=== PATIENT | female | born 1980 | race Caucasian/White ===

== ENCOUNTER 2016-09-25 04:19 | Emergency (ER) | payer SELFPAY ==
[~2016-09-25 04:19] MED LIST: AMOX875T PO; BUTA1CAP29 PO; HYDR-2758 PO
--- NOTE | 2016-09-25 04:40 | ED.ADGEN ---
Past History Past Medical History: Other Past Surgical History: Smoking: Non-smoker Alcohol Use: Occasionally Drug Use: None Adult General HPI HPI Patient is a 36-year-old woman, who presents to the emergency department with a complaint of right sided flank pain and right abdominal pain that woke her from sleep around 3:00 this morning. Patient states pain is been mostly constant since about 3 AM, states she took acetaminophen about 45 minutes prior to arrival in the emergency department without relief. Is experiencing nausea and vomiting as well, denies any dysuria, any frequency or urgency, any hematuria. Patient denies any similar symptoms previously. She states that she was evaluated for gallbladder issues about a month ago, but states this pain is different. Denies any recent injuries, any travel, any sick contacts or exposures, no fevers, complaining of chills this morning, no weakness, numbness , tingling, chest pain, shortness of breath, rashes, swelling extremities, discharge or drainage from the vagina or concerns for STI exposure. Review of Systems Review of Systems Constitutional: Denies fever or chills [] Eyes: Denies change in visual acuity, redness, or eye pain [] HENT: Denies nasal congestion or sore throat [] Respiratory: Denies cough or shortness of breath [] Cardiovascular: No additional information not addressed in HPI [] GI: Right flank pain, right sided abdominal pain, associated with nausea, no diarrhea. No bloody stools or bloody emesis. : Denies dysuria or hematuria [] Musculoskeletal: Denies back pain or joint pain [] Integument: Denies rash or skin lesions [] Neurologic: Denies headache, focal weakness or sensory changes [] Endocrine: Denies polyuria or polydipsia [] Current Medications Current Medications Current Medications Medications (Trade) Dose Ordered Sig/Isaura Start Time Stop Time Status Last Admin Dose Admin Cephalexin HCl (Keflex) 500 mg 1X ONCE 09/25/16 06:00 09/25/16 06:01 UNV 09/25/16 06:00 500 MG Fentanyl Citrate (Fentanyl 2ml Vial) 25 mcg PRN Q15MIN PRN 09/25/16 04:45 09/26/16 04:44 09/25/16 05:02 25 MCG Ketorolac Tromethamine (Toradol) 10 mg 1X ONCE 09/25/16 04:45 09/25/16 05:54 DC 09/25/16 04:45 10 MG Ondansetron HCl (Zofran) 4 mg 1X ONCE 09/25/16 04:45 09/25/16 05:54 DC 09/25/16 04:45 4 MG Phenazopyridine HCl (Pyridium) 200 mg 1X ONCE 09/25/16 06:15 09/25/16 06:16 UNV Sodium Chloride 1,000 ml @ 1,000 mls/hr Q1H 09/25/16 04:45 09/25/16 05:45 DC 09/25/16 04:45 1,000 MLS/HR Allergies Allergies Allergies Coded Allergies Type Severity Reaction Last Updated Verified warfarin sodium Allergy Intermediate 07/16/13 Yes Physical Exam Physical Exam Constitutional: Well developed, obese, appears uncomfortable, non-toxic appearance. [] HENT: Normocephalic, atraumatic, bilateral external ears normal, oropharynx moist, no oral exudates, nose normal. [] Eyes: PERRLA, EOMI, conjunctiva normal, no discharge. [] Neck: Normal range of motion, no tenderness, supple, no stridor. [] Cardiovascular:Heart rate regular rhythm, no murmur , S1, S2, no rubs or gallops. [] Lungs & Thorax: Bilateral breath sounds clear to auscultation, no wheezing, rhonchi, rales. No chest tenderness or crepitus. [] Abdomen: Bowel sounds normal, soft, tenderness to palpation along the right middle and lower quadrant, negative Osman sign, no rebound, rigidity, no guarding, no masses, no pulsatile masses. [] Skin: Warm, dry, no erythema, no rash. [] Back: No no midline or paraspinal tenderness, mild right-sided CVA tenderness. [ ] Extremities: No tenderness, no cyanosis, no clubbing, ROM intact, no edema. [] Neurologic: Alert and oriented X 3, normal motor function, normal sensory function, no focal deficits noted. [] Psychologic: Affect normal, judgement normal, mood normal. [] Current Patient Data Vital Signs Vital Signs Date Time Temp Pulse Resp B/P (MAP) Pulse Ox O2 Delivery O2 Flow Rate FiO2 09/25/16 05:32 20 98 Room Air 09/25/16 04:20 98.3 94 Lab Results Laboratory Tests Test 09/25/16 04:25 09/25/16 04:30 09/25/16 04:35 Urine Collection Type Unknown Urine Color Yellow Urine Clarity Clear Urine pH 5.5 Urine Specific [place] 1.020 Urine Protein Neg (NEG-TRACE) Urine Glucose (UA) Neg mg/dL (NEG) Urine Ketones (Stick) Neg mg/dL (NEG) Urine Blood Neg (NEG) Urine Nitrite Neg (NEG) Urine Bilirubin Neg (NEG) Urine Urobilinogen Dipstick 0.2 mg/dL (0.2 mg/dL) Urine Leukocyte Esterase Trace (NEG) Urine RBC 0 /HPF (0-2) Urine WBC 5-10 /HPF (0-4) Urine Squamous Epithelial Cells Few /LPF Urine Bacteria Few /HPF (0-FEW) Urine Sperm Present /HPF White Blood Count 8.1 x10^3/uL (4.0-11.0) Red Blood Count 4.59 x10^6/uL (3.50-5.40) Hemoglobin 13.8 g/dL (12.0-15.5) Hematocrit 39.6 % (36.0-47.0) Mean Corpuscular Volume 86 fL (79-100) Mean Corpuscular Hemoglobin 30 pg (25-35) Mean Corpuscular Hemoglobin Concent 35 g/dL (31-37) Red Cell Distribution Width 13.3 % (11.5-14.5) Platelet Count 269 x10^3/uL (140-400) Neutrophils (%) (Auto) 63 % (31-73) Lymphocytes (%) (Auto) 28 % (24-48) Monocytes (%) (Auto) 7 % (0-9) Eosinophils (%) (Auto) 2 % (0-3) Basophils (%) (Auto) 1 % (0-3) Neutrophils # (Auto) 5.1 x10^3uL (1.8-7.7) Lymphocytes # (Auto) 2.2 x10^3/uL (1.0-4.8) Monocytes # (Auto) 0.5 x10^3/uL (0.0-1.1) Eosinophils # (Auto) 0.2 x10^3/uL (0.0-0.7) Basophils # (Auto) 0.0 x10^3/uL (0.0-0.2) Sodium Level 142 mmol/L (136-145) Potassium Level 3.7 mmol/L (3.5-5.1) Chloride Level 108 mmol/L (98-107) H Carbon Dioxide Level 25 mmol/L (21-32) Anion Gap 9 (6-14) Blood Urea Nitrogen 14 mg/dL (7-20) Creatinine 0.9 mg/dL (0.6-1.0) Estimated GFR (Cockcroft-Gault) 71.3 BUN/Creatinine Ratio 16 (6-20) Glucose Level 115 mg/dL (70-99) H Calcium Level 8.4 mg/dL (8.5-10.1) L Total Bilirubin 0.4 mg/dL (0.2-1.0) Aspartate Amino Transferase (AST) 13 U/L (15-37) L Alanine Aminotransferase (ALT) 20 U/L (14-59) Alkaline Phosphatase 88 U/L (46-116) Total Protein 6.8 g/dL (6.4-8.2) Albumin 3.4 g/dL (3.4-5.0) Albumin/Globulin Ratio 1.0 (1.0-1.7) Lipase 147 U/L (73-393) POC Urine HCG, Qualitative hcg negative (Negative) EKG EKG Not indicated. [] Radiology/Procedures Radiology/Procedures [][place] [id number] IMAGING REPORT Signed PATIENT: BROCK FERRARI ACCOUNT: [id number] : 1980 LOCATION: ER AGE: 36 SEX: F EXAM STATUS: PRE ER ORD. PHYSICIAN: ARASH FULLER DO REASON: R flank/RLQ pain PROCEDURE: CT ABDOMEN PELVIS WO CONTRAST EXAM: CT ABDOMEN/PELVIS WITHOUT CONTRAST. HISTORY: Right flank and right lower quadrant pain. TECHNIQUE: Computed tomography of the abdomen and pelvis was performed without intravenous contrast. COMPARISON: None. FINDINGS: Lung windows through the visualized portions of the bases reveal mild atelectasis. Bone windows reveal no suspicious lesions. A small cyst in the right kidney measures 9 mm. There are no renal or ureteral calculi. There is no hydronephrosis. There is diffuse bladder wall thickening. There are small gallstones in the gallbladder. There is no pericholecystic inflammation. The liver, spleen, pancreas and adrenal glands are unremarkable without contrast. There are no pathologically enlarged lymph nodes. The appendix is not inflamed. Stool throughout the colon is consistent with constipation. IMPRESSION: 1. Diffuse bladder wall thickening indicates chronic outlet obstruction or inflammation. Correlate with urinalysis. 2. Cholelithiasis. 3. Correlate for constipation as a cause of symptoms. *One or more of the following individualized dose reduction techniques were utilized for this examination: 1. Automated exposure control. 2. Adjustment of the mA and/or kV according to patient size. 3. Use of iterative reconstruction technique. Electronically signed by: Lola Carrillo MD (09/25/2016 5:38 AM) DICTATED AND SIGNED BY: RODRIGUEZ CARRILLO MD DATE: 09/25/16 0509 CC: ARASH FULLER DO; PCP,NO ~ Course & Med Decision Making Course & Med Decision Making Pertinent Labs and Imaging studies reviewed. (See chart for details) After discussion, CT of abdomen and pelvis obtained further elucidate patient's symptoms, concern for possible renal calculi. Laboratory studies and scan obtained as stated, patient received Toradol, IV fluids, Zofran. On reevaluation patient is feeling much better, CT does not reveal evidence of any renal calculi, some evidence of thickening of the bladder, patient states she has a history of multiple recurrent UTIs, and also of constipation, with cholelithiasis without evidence of cholecystitis. Laboratory studies are unremarkable, and patient noted to have some wbc's and bacteria in the urine although it is nitrate negative. Patient the patient's examination and complaints, we'll treat for potential urinary tract infection is contributing to her symptoms, although show evidence of pyelonephritis or other concerning findings as stated. Patient received first dose of Keflex in the emergency department, discharged with prescription for Keflex Pyridium and naproxen, I did discuss importance of follow-up with a primary care provider for additional evaluation, dietary recommendations and hydration recommendations, along with use of naproxen and Pyridium for discomfort. Patient voiced understanding and agreement with these instructions and precautions, states she'll be able to follow-up with a provider through her place of employment, and also requested information regarding additional evaluation of her gallbladder, for this she was given contact information for Dr. Baker of general surgery. We also discussed concerning symptoms that prompt return to the emergency department, with which patient voiced understanding and agreement. Patient discharged home in stable condition with instructions and plan as above. Final Impression Final Impression [] Problems: Dragon Disclaimer Dragon Disclaimer This electronic medical record was generated, in whole or in part, using a voice recognition dictation system. Departure: Impression: Primary Impression: Abdominal pain Additional Impression: Urinary tract infection Disposition: HOME, SELF-CARE Condition: IMPROVED Scripts Phenazopyridine Hcl (PYRIDIUM) 200 Mg Tablet 200 MG PO PRN TID Y for PAIN, #9 TAB Prov: ARASH FULLER DO 09/25/16 Naproxen (NAPROXEN) 250 Mg Tablet 250 MG PO PRN BID Y for PAIN, #10 TAB Prov: ARASH FULLER DO 09/25/16 Cephalexin (KEFLEX) 500 Mg Capsule 1 CAP PO BID, #5 CAP Prov: ARASH FULLER DO 09/25/16 ARASH FULLER DO Sep 25, 2016 04:40
[2016-09-25] MEDS ORDERED: ONDANSETRON PF 4 MG/2 ML VIAL. IV ONE (04:45)
[2016-09-25] MEDS ORDERED: fentaNYL PF 100 MCG/2 ML VIAL IV PRN (04:45)
[2016-09-25] MEDS ORDERED: IV NORMAL SALINE 1,000ML 1,000 ML IV SCH (04:45)
[2016-09-25] MEDS ORDERED: KETOROLAC 30 MG/ML VIAL. IV ONE (04:45)
[2016-09-25 04:49] LABS: BILIRUBIN,URINE NEG (NEG); CLARITY,URINE CLEAR; COLOR,URINE YELLOW; GLUCOSE,URINE NEG (NEG)
[2016-09-25 04:50] LABS: BACTERIA,URINE FEW /HPF (0-FEW); NITRITE,URINE NEG (NEG); RBC,URINE 0 /HPF (0-2); SPERM,URINE PRESENT /HPF; SQUAMOUS EPITHELIAL CELL,UR FEW /LPF; UROBILINOGEN,URINE 0.2 mg/dL (0.2 mg/dL)
[2016-09-25 05:05] LABS: BASO % 1 % (0-3); EOS # 0.2 x10^3/uL (0.0-0.7); EOS % 2 % (0-3); HEMATOCRIT 39.6 % (36.0-47.0); HEMOGLOBIN 13.8 g/dL (12.0-15.5); LYMPH # 2.2 x10^3/uL (1.0-4.8); LYMPH % 28 % (24-48); MEAN CORPUSCULAR HEMOGLOBIN 30 pg (25-35); MEAN CORPUSCULAR HGB CONC 35 g/dL (31-37); MEAN CORPUSCULAR VOLUME 86 fL (79-100); MONO # 0.5 x10^3/uL (0.0-1.1); MONO % 7 % (0-9); NEUT # 5.1 x10^3uL (1.8-7.7); NEUT % 63 % (31-73); PLATELET COUNT 269 x10^3/uL (140-400); RED BLOOD COUNT 4.59 x10^6/uL (3.50-5.40); RED CELL DISTRIBUTION WIDTH 13.3 % (11.5-14.5); WHITE BLOOD COUNT 8.1 x10^3/uL (4.0-11.0)
[2016-09-25 05:15] LABS: ALBUMIN 3.4 g/dL (3.4-5.0); CALCIUM 8.4 mg/dL (8.5-10.1); CREATININE 0.9 mg/dL (0.6-1.0); GFR 71.3; POTASSIUM 3.7 mmol/L (3.5-5.1); TOTAL BILIRUBIN 0.4 mg/dL (0.2-1.0); TOTAL PROTEIN 6.8 g/dL (6.4-8.2)
--- NOTE | 2016-09-25 05:42 | RAD ---
EXAM: CT ABDOMEN/PELVIS WITHOUT CONTRAST. HISTORY: Right flank and right lower quadrant pain. TECHNIQUE: Computed tomography of the abdomen and pelvis was performed without intravenous contrast. COMPARISON: None. FINDINGS: Lung windows through the visualized portions of the bases reveal mild atelectasis. Bone windows reveal no suspicious lesions. A small cyst in the right kidney measures 9 mm. There are no renal or ureteral calculi. There is no hydronephrosis. There is diffuse bladder wall thickening. There are small gallstones in the gallbladder. There is no pericholecystic inflammation. The liver, spleen, pancreas and adrenal glands are unremarkable without contrast. There are no pathologically enlarged lymph nodes. The appendix is not inflamed. Stool throughout the colon is consistent with constipation. IMPRESSION: 1. Diffuse bladder wall thickening indicates chronic outlet obstruction or inflammation. Correlate with urinalysis. 2. Cholelithiasis. 3. Correlate for constipation as a cause of symptoms. *One or more of the following individualized dose reduction techniques were utilized for this examination: 1. Automated exposure control. 2. Adjustment of the mA and/or kV according to patient size. 3. Use of iterative reconstruction technique. Electronically signed by: Lola Carrillo MD (09/25/2016 5:38 AM)
[2016-09-25] MEDS ORDERED: CEPHALEXIN 500 MG CAPSULE PO ONE (06:00)
[2016-09-25] MEDS ORDERED: NAPR250T2 PO (06:02)
[2016-09-25] MEDS ORDERED: PHEN-318 PO (06:02)
[2016-09-25] MEDS ORDERED: CEPH-264 PO (06:02)
[2016-09-25 06:15] VITALS: BP 127/71
[2016-09-25] MEDS ORDERED: PHENAZOPYRIDINE 200 MG TABLET. PO ONE (06:15)
== END 2016-09-25 06:15 | disposition home or self-care (01) ==
LOC: ER 04:19
DX: N39.0 Urinary tract infection, site not specified (principal); R11.2 Nausea with vomiting, unspecified; Z88.8 Allergy status to other drugs, medicaments and biological substances
CPT/HCPCS: 36415; 74176; 80053; 81001; 81025; 83690; 85027; 96361; 96374; 96375; 99285; J1885; J2405; J3010; J7030

== ENCOUNTER → 2020-03-28 | Outpatient (CLI) | payer OTHER ==
[~2020-03-28] MED LIST changes: +CEPH-264 PO; +HYDR-2155 PO; -HYDR-2758 PO; +NAPR250T6 PO; +PHEN-318 PO
--- NOTE | 2020-04-03 16:35 | RAD ---
BILATERAL SCREENING MAMMOGRAM, 3-D History: Routine screening. Comparison: 01/29/2015, 10/31/2016, 12/14/2017, 01/21/2019. Technique: MLO and CC digital tomosynthesis (3D) images obtained. Radiologist reviewed these images on dedicated workstation. Findings: Breast Tissue Density B : There are scattered areas of fibroglandular density. There are no dominant masses, suspicious microcalcifications, or architectural distortion. IMPRESSION: No mammographic evidence of malignancy. Recommend routine screening. BI-RADS category 1: Negative. The images were reviewed with computer-aided detection. Patient information is entered into reminder system with a target due date for the next screening mammogram. Mammography is the most sensitive method for finding small breast cancers, but it does not detect them all and is not a substitute for careful clinical examination. A negative mammogram does not negate a clinically suspicious finding and should not result in delay in biopsying a clinically suspicious abnormality. "Our facility is accredited by the [employer] Mammography Program." Electronically signed by: Sanjay Martinez MD (04/03/2020 4:32 PM) [id number]
== END ==
LOC: MAMMO 08:25
PROVIDERS: ATTEND Family Medicine
DX: Z12.31 Encounter for screening mammogram for malignant neoplasm of breast (principal)
CPT/HCPCS: 77063; 77067

== ENCOUNTER → 2020-10-11 | Outpatient (CLI) | payer OTHER ==
[~2020-10-11] MED LIST changes: +NAPR-699 PO; -NAPR250T6 PO
--- NOTE | 2020-10-11 11:12 | RAD ---
XR KNEE _3 VIEWS_LT DATE: 10/11/2020 10:08 AM INDICATION: KNEE PAIN AFTER INJURY THIS WEEKEND COMPARISON: None. FINDINGS: Bones: There is no evidence of acute fracture or dislocation. Joints: The joint spaces are normal. There is no joint effusion. Miscellaneous: None. IMPRESSION: No evidence of acute fracture. Electronically signed by: Jonathan Montana MD (10/11/2020 11:09 AM) [id number]
== END ==
LOC: RAD 09:45
PROVIDERS: ATTEND Orthopaedic Surgery
DX: M25.562 Pain in left knee (principal)
CPT/HCPCS: 73562